=== PATIENT | female | born 1940 | race Caucasian/White ===

== ENCOUNTER 2022-12-24 18:54 | Emergency (ER) | payer MEDICARE, MEDICAID ==
[~2022-12-24] VITALS: Ht 170.2 cm; Wt 83.9 kg
[2022-12-24 19:06] VITALS: BP 164/74
[2022-12-24 19:15] VITALS: BP 165/78
[2022-12-24 20:33] LABS: BASO% 0.5 % (0-3); EOS% 2.7 % (0-8); HEMATOCRIT 45.8 % (37.0-47.0); IMMATURE GRANULOCYTES 0.2 % (0.0-5.0); LYMPH% 26.6 % (15-41); MEAN CELL VOLUME 92.3 fL CALC (80.0-100.0); MEAN CORPUSCULAR HGB 30.2 pG CALC (26.0-32.0); MEAN CORPUSCULAR HGB CONC 32.8 g/dL CAL (32.0-36.0); MONO% 5.8 % (2-13); NEUT# 6.15 thou/uL (2.00-7.15); NEUT% 64.2 % (42-76); RED BLOOD COUNT 4.96 mill/uL (4.20-5.60); RED CELL DISTRI WIDTH 12.3 % (11.5-15.5)
[2022-12-24 20:34] LABS: URINE BILIRUBIN - DIPSTICK NEGATIVE (NEGATIVE); URINE BLOOD DIPSTICK NEGATIVE (NEGATIVE); URINE COLOR YELLOW; URINE GLUCOSE - DIPSTICK NEGATIVE (NEGATIVE); URINE KETONE NEGATIVE (NEGATIVE); URINE LEUK ESTERASE TRACE (NEGATIVE); URINE PROTEIN - DIPSTICK NEGATIVE (NEG-TRACE); URINE UROBILINOGEN - DIPSTICK 0.2 E.U./dL (0.2)
[2022-12-24 20:39] LABS: URINE NITRITE - DIPSTICK NEGATIVE (Negative)
[2022-12-24 20:42] LABS: ALBUMIN 4.8 g/dL (3.2-5.0); ALKALINE PHOSPHATASE 69 u/l (38-126); ANION GAP 10 (6-22 (CALC)); BILIRUBIN, TOTAL 0.7 mg/dL (0.02-1.3); BUN 8 mg/dL (8-23); BUN/CREATININE RATIO 11 (12-20 (CALC)); CARBON DIOXIDE 29 mmol/l (22-30); CHLORIDE 100 mmol/l (95-108); CREATININE 0.7 mg/dL (0.5-1.0); GFR FOR AFR.AMER. > 60 ML/MIN (>=60 (CALC)); GFR OTHER RACES > 60 ML/MIN (>=60 (CALC)); POTASSIUM 3.4 mmol/l (3.5-5.1); SGOT/AST 34 u/l (9-36); SODIUM 136 mmol/l (137-146); TOTAL PROTEIN 8.1 g/dL (6.3-8.2)
[2022-12-24 20:55] LABS: PROTHROMBIN TIME 10.3 SECONDS (9.0-12.5)
[2022-12-24] MEDS ORDERED: CORDARONE/PACE100 MG PO (21:41)
[2022-12-24] MEDS ORDERED: MECLIZINE25 MG PO (23:01)
[2022-12-25 06:43] VITALS: BP 165/78
== END 2022-12-25 08:00 | disposition home or self-care (01) ==
LOC: ED 18:54
PROVIDERS: Emergency Medicine
DX: R42 Dizziness and giddiness (principal); I48.91 Unspecified atrial fibrillation
CPT/HCPCS: Q9967

== ENCOUNTER 2023-02-02 18:26 | Observation (INO) | payer MEDICARE, MEDICAID ==
[~2023-02-02] VITALS: Ht 170.2 cm; Wt 81.0 kg
[2023-02-02] VITALS (11 sets, daily range): BP systolic 117–162; BP diastolic 51–68
[~2023-02-02 18:26] MED LIST: CORDARONE/PACE100 MG PO; MECLIZINE25 MG PO
[2023-02-02 19:24] LABS: BASO% 0.5 % (0-3); EOS% 2.8 % (0-8); HEMATOCRIT 40.7 % (37.0-47.0); HEMOGLOBIN 13.6 g/dl (12.0-16.0); IMMATURE GRANULOCYTES 0.1 % (0.0-5.0); LYMPH% 27.8 % (15-41); MEAN CELL VOLUME 91.5 fL CALC (80.0-100.0); MEAN CORPUSCULAR HGB 30.6 pG CALC (26.0-32.0); MEAN CORPUSCULAR HGB CONC 33.4 g/dL CAL (32.0-36.0); MONO% 7.2 % (2-13); NEUT# 4.91 thou/uL (2.00-7.15); NEUT% 61.6 % (42-76); RED BLOOD COUNT 4.45 mill/uL (4.20-5.60); RED CELL DISTRI WIDTH 12.5 % (11.5-15.5)
[2023-02-02 19:35] LABS: ALBUMIN 4.3 g/dL (3.2-5.0); ALKALINE PHOSPHATASE 61 u/l (38-126); ANION GAP 12 (6-22 (CALC)); BILIRUBIN, TOTAL 0.6 mg/dL (0.02-1.3); BUN 12 mg/dL (8-23); BUN/CREATININE RATIO 17 (12-20 (CALC)); CARBON DIOXIDE 27 mmol/l (22-30); CHLORIDE 103 mmol/l (95-108); CREATININE 0.7 mg/dL (0.5-1.0); GFR FOR AFR.AMER. > 60 ML/MIN (>=60 (CALC)); GFR OTHER RACES > 60 ML/MIN (>=60 (CALC)); SGOT/AST 28 u/l (9-36); SODIUM 138 mmol/l (137-146); TOTAL PROTEIN 7.1 g/dL (6.3-8.2)
[2023-02-02 19:42] LABS: POTASSIUM 4.2 mmol/l (3.5-5.1)
[2023-02-02] MEDS ORDERED: LEVOTHYROXIN125 MCG PO (21:32)
[2023-02-03 03:49] VITALS: BP 116/50
[2023-02-03 04:07] LABS: CHOLESTEROL HDL RATIO 2.9 (<4.4 (CALC)); MAGNESIUM 2.1 mg/dL (1.6-2.3)
[2023-02-03 06:46] VITALS: BP 122/57
[2023-02-03 10:56] VITALS: BP 123/48
== END 2023-02-03 13:07 | disposition home or self-care (01) ==
LOC: ED 18:26 → ED-I 19:30 → ED 19:51 → MS2 19:52
PROVIDERS: Family Medicine; ADMIT Internal Medicine; ATTEND Internal Medicine
DX: R07.89 Other chest pain (principal); I48.91 Unspecified atrial fibrillation; E03.9 Hypothyroidism, unspecified; T46.2X6A Underdosing of other antidysrhythmic drugs, initial encounter; Z91.128 Patient's intentional underdosing of medication regimen for other reason

== ENCOUNTER 2023-07-28 19:06 | Emergency (ER) | payer MEDICARE, MEDICAID ==
[2023-07-28] VITALS (12 sets, daily range): BP systolic 96–154; BP diastolic 53–79
[~2023-07-28] VITALS: Ht 170.2 cm; Wt 74.2 kg
[~2023-07-28 19:06] MED LIST changes: +LEVOTHYROXIN125 MCG PO
[2023-07-28 20:20] LABS: BASO% 0.4 % (0-3); EOS% 2.9 % (0-8); HEMATOCRIT 43.6 % (37.0-47.0); HEMOGLOBIN 14.8 g/dl (12.0-16.0); IMMATURE GRANULOCYTES 0.1 % (0.0-5.0); LYMPH% 25.1 % (15-41); MEAN CELL VOLUME 92.2 fL CALC (80.0-100.0); MEAN CORPUSCULAR HGB 31.3 pG CALC (26.0-32.0); MEAN CORPUSCULAR HGB CONC 33.9 g/dL CAL (32.0-36.0); MONO% 5.4 % (2-13); NEUT% 66.1 % (42-76); RED BLOOD COUNT 4.73 mill/uL (4.20-5.60); RED CELL DISTRI WIDTH 12.5 % (11.5-15.5)
[2023-07-28 20:23] LABS: ALBUMIN 4.2 g/dL (3.2-5.0); ALKALINE PHOSPHATASE 58 u/l (38-126); ANION GAP 9 (6-22 (CALC)); BUN 10 mg/dL (8-23); BUN/CREATININE RATIO 13 (12-20 (CALC)); CARBON DIOXIDE 32 mmol/l (22-30); CHLORIDE 101 mmol/l (95-108); CREATININE 0.8 mg/dL (0.5-1.0); GFR FOR AFR.AMER. > 60 ML/MIN (>=60 (CALC)); GFR OTHER RACES > 60 ML/MIN (>=60 (CALC)); POTASSIUM 3.5 mmol/l (3.5-5.1); SGOT/AST 31 u/l (9-36); SODIUM 138 mmol/l (137-146); TOTAL PROTEIN 7.4 g/dL (6.3-8.2)
[2023-07-28 20:26] LABS: INTERNATIONAL NORMALIZED RATIO 1.1 RATIO (0.7-1.3); PROTHROMBIN TIME 10.7 SECONDS (9.0-12.5)
[2023-07-28 20:31] LABS: BILIRUBIN, TOTAL 1.2 mg/dL (0.02-1.3)
[2023-07-28 20:38] LABS: URINE BILIRUBIN - DIPSTICK Negative (NEGATIVE); URINE BLOOD DIPSTICK Trace-intact (NEGATIVE); URINE GLUCOSE - DIPSTICK Negative (NEGATIVE); URINE KETONE Negative (NEGATIVE); URINE LEUK ESTERASE Negative (NEGATIVE); URINE NITRITE - DIPSTICK Negative (Negative); URINE PH 6.5 (4.5-8.0); URINE PROTEIN - DIPSTICK Negative (NEG-TRACE); URINE UROBILINOGEN - DIPSTICK 0.2 E.U./dL (0.2)
[2023-07-28 20:40] LABS: URINE COLOR Yellow
== END 2023-07-28 22:02 | disposition home or self-care (01) ==
LOC: ED 19:06
PROVIDERS: Emergency Medicine
DX: E03.9 Hypothyroidism, unspecified (principal); I49.1 Atrial premature depolarization; I48.91 Unspecified atrial fibrillation; K58.0 Irritable bowel syndrome with diarrhea; T38.1X6A Underdosing of thyroid hormones and substitutes, initial encounter; T46.2X6A Underdosing of other antidysrhythmic drugs, initial encounter; Z91.128 Patient's intentional underdosing of medication regimen for other reason; Z88.8 Allergy status to other drugs, medicaments and biological substances; Z88.0 Allergy status to penicillin

== ENCOUNTER 2023-12-01 17:39 | Emergency (ER) | payer MEDICARE, MEDICAID ==
[~2023-12-01] VITALS: Ht 170.2 cm; Wt 85.5 kg
[~2023-12-01 17:39] MED LIST changes: +GAS RELIEF80 M1 PO; +LEVOTHYROXIN25 MC1 PO; +PROBIOTI2 PO; +TUMS500 MG PO
[2023-12-01 17:59] VITALS: BP 157/87
[2023-12-01 18:03] LABS: BASO% 0.3 % (0-3); EOS% 2.3 % (0-8); HEMOGLOBIN 14.2 g/dl (12.0-16.0); IMMATURE GRANULOCYTES 0.1 % (0.0-5.0); LYMPH% 22.4 % (15-41); MEAN CELL VOLUME 92.3 fL CALC (80.0-100.0); MEAN CORPUSCULAR HGB 30.5 pG CALC (26.0-32.0); MONO% 5.5 % (2-13); NEUT# 6.35 thou/uL (2.00-7.15); NEUT% 69.4 % (42-76); RED BLOOD COUNT 4.66 mill/uL (4.20-5.60); RED CELL DISTRI WIDTH 12.5 % (11.5-15.5)
[2023-12-01 18:16] VITALS: BP 143/64
[2023-12-01 18:31] VITALS: BP 137/66
[2023-12-01 18:38] LABS: ALBUMIN 4.1 g/dL (3.2-5.0); ALKALINE PHOSPHATASE 72 u/l (38-126); ANION GAP 13 (6-22 (CALC)); BUN 9 mg/dL (8-23); BUN/CREATININE RATIO 12 (12-20 (CALC)); CARBON DIOXIDE 23 mmol/l (22-30); CHLORIDE 103 mmol/l (95-108); CREATININE 0.7 mg/dL (0.5-1.0); GFR FOR AFR.AMER. > 60 ML/MIN (>=60 (CALC)); GFR OTHER RACES > 60 ML/MIN (>=60 (CALC)); POTASSIUM 3.8 mmol/l (3.5-5.1); SGOT/AST 35 u/l (9-36); SODIUM 135 mmol/l (137-146)
[2023-12-01 19:16] VITALS: BP 152/70
[2023-12-01 19:31] VITALS: BP 136/61
[2023-12-01 19:38] VITALS: BP 136/61
== END 2023-12-01 19:40 | disposition left against medical advice (07) ==
LOC: ED 17:39 → ED-I 18:44 → ED 19:40
PROVIDERS: Family Medicine
DX: R07.9 Chest pain, unspecified (principal); I48.91 Unspecified atrial fibrillation; I25.10 Atherosclerotic heart disease of native coronary artery without angina pectoris; Z53.29 Procedure and treatment not carried out because of patient's decision for other reasons; F32.A Depression, unspecified; F41.9 Anxiety disorder, unspecified; Z20.822 Contact with and (suspected) exposure to COVID-19

== ENCOUNTER 2024-07-27 21:43 | Observation (INO) | payer MEDICARE, MEDICAID ==
[~2024-07-27] VITALS: Ht 170.2 cm; Wt 84.1 kg
[2024-07-27] VITALS (10 sets, daily range): BP systolic 98–122; BP diastolic 55–90
[2024-07-27] MEDS ORDERED: ASPIRIN 81 MG/TAB PO ONE (21:50)
[2024-07-27] MEDS ORDERED: SODIUM CHLORIDE 0.9% 500 ML IV ONE (21:50)
[2024-07-27] MEDS ORDERED: DILTIAZEM HCL 25 MG/5 ML SDV IV ONE (21:50)
[2024-07-27] MEDS ORDERED: DILTIAZEM HCL 125 MG in SODIUM CHLORIDE 0.9% 100 ML IV ONE (21:50)
[2024-07-27 22:06] LABS: BASO% 0.4 % (0-3); EOS% 2.3 % (0-8); HEMATOCRIT 46.4 % (37.0-47.0); HEMOGLOBIN 15.6 g/dl (12.0-16.0); IMMATURE GRANULOCYTES 0.3 % (0.0-5.0); LYMPH% 26.7 % (15-41); MEAN CELL VOLUME 91.3 fL CALC (80.0-100.0); MEAN CORPUSCULAR HGB 30.7 pG CALC (26.0-32.0); MEAN CORPUSCULAR HGB CONC 33.6 g/dL CAL (32.0-36.0); MONO% 6.9 % (2-13); NEUT# 6.57 thou/uL (2.00-7.15); NEUT% 63.4 % (42-76); RED BLOOD COUNT 5.08 mill/uL (4.20-5.60); RED CELL DISTRI WIDTH 12.7 % (11.5-15.5)
[2024-07-27 22:37] LABS: PROTHROMBIN TIME 9.9 SECONDS (9.0-12.5)
[2024-07-27 22:50] LABS: CPK 35 u/l (30-135); LIPASE 212 u/l (23-300); MAGNESIUM 2.1 mg/dL (1.6-2.3)
[2024-07-27] MEDS ORDERED: ALUM & MAG HYDROX-SIMETHICONE 30 ML PO PRN (23:25)
[2024-07-27] MEDS ORDERED: FAMOTIDINE 10MG/ML 2ML SDV IV PRN (23:25)
[2024-07-27] MEDS ORDERED: ONDANSETRON HCl 4 MG/2 ML SDV IV PRN (23:25)
[2024-07-27] MEDS ORDERED: IBUPROFEN 800 MG/TAB PO PRN (23:25)
[2024-07-27] MEDS ORDERED: ONDANSETRON 4 MG/TAB ODT PO PRN (23:25)
[2024-07-27] MEDS ORDERED: Polyethylene Glycol 3350 17 GM/PKT PO PRN (23:25)
[2024-07-27] MEDS ORDERED: CLARIFY DOSE PO PRN (23:45)
[2024-07-28] VITALS (16 sets, daily range): BP systolic 105–135; BP diastolic 55–90
[2024-07-28] MEDS ORDERED: METOPROLOL TARTRATE 25 MG/TAB PO SCH (01:30)
[2024-07-28 05:18] LABS: ALBUMIN 3.8 g/dL (3.2-5.0); BILIRUBIN, TOTAL 0.7 mg/dL (0.02-1.3); CREATININE 0.8 mg/dL (0.5-1.0); MAGNESIUM 2.1 mg/dL (1.6-2.3); POTASSIUM 4.4 mmol/l (3.5-5.1); TOTAL PROTEIN 6.5 g/dL (6.3-8.2)
[2024-07-28 05:23] LABS: BASO% 0.3 % (0-3); HEMATOCRIT 44.9 % (37.0-47.0); IMMATURE GRANULOCYTES 0.2 % (0.0-5.0); LYMPH% 27.3 % (15-41); MEAN CELL VOLUME 92.8 fL CALC (80.0-100.0); MEAN CORPUSCULAR HGB CONC 33.4 g/dL CAL (32.0-36.0); MONO% 6.5 % (2-13); NEUT# 5.95 thou/uL (2.00-7.15); NEUT% 62.7 % (42-76); RED BLOOD COUNT 4.84 mill/uL (4.20-5.60); RED CELL DISTRI WIDTH 12.8 % (11.5-15.5)
[2024-07-28] MEDS ORDERED: LEVOTHYROXINE SODIUM 25 MCG/TAB PO SCH (06:12)
[2024-07-28] MEDS ORDERED: PANTOPRAZOLE SODIUM Sesquihydr 40 MG/TAB PO SCH (09:00)
[2024-07-28] MEDS ORDERED: AMIODARONE 200 MG/TAB PO SCH (09:00)
[2024-07-28] MEDS ORDERED: PARoxetine 10 MG/TAB PO SCH (09:00)
[2024-07-28] MEDS ORDERED: PANTOPRAZOLE SO40 M1 PO (14:01)
[2024-07-28] MEDS ORDERED: CORDARONE/PACE100 MG PO (14:01)
== END 2024-07-28 15:50 | disposition home or self-care (01) ==
LOC: ED 21:43 → ED-I 23:00 → MS2 23:24 → ED 23:24 → MS2 23:24
PROVIDERS: Internal Medicine; ADMIT Student in an Organized Health Care Education/Training Program; ATTEND Student in an Organized Health Care Education/Training Program
DX: I48.0 Paroxysmal atrial fibrillation (principal); I25.10 Atherosclerotic heart disease of native coronary artery without angina pectoris; E03.9 Hypothyroidism, unspecified; F41.9 Anxiety disorder, unspecified; F32.A Depression, unspecified; T38.1X6A Underdosing of thyroid hormones and substitutes, initial encounter; Z91.128 Patient's intentional underdosing of medication regimen for other reason